=== PATIENT | female | born 1955 | race Caucasian/White ===

== ENCOUNTER 2016-11-18 12:50 | Observation (INO) | payer OTHER ==
[2016-11-18 13:33] LABS: % IMMATURE GRANULYOCYTES 0.2 % (0.0-1.1); ABSOLUTE IMMATURE GRANULOCYTES 0.03 10^3/uL (0.00-0.10); ADD DIFF? NO; ADD MORPH? NO; ADD SCAN? NO; ATYPICAL LYMPHOCYTE FLAG 0 (0-99); FRAGMENT RBC FLAG 0 (0-99); HEMATOCRIT 40.6 % (38.0-47.0); HEMOGLOBIN 13.9 g/dL (12.6-16.3); LEFT SHIFT FLG 90 (0-99); LIPEMIA HEMOLYSIS FLAG 90 (0-99); MEAN CELL HEMOGLOBIN 32.3 pg (27.9-34.1); MEAN CELL HEMOGLOBIN CONCENTR. 34.2 g/dL (32.4-36.7); MEAN CELL VOLUME 94.4 fL (81.5-99.8); MEAN PLATELET VOLUME 9.4 fL (8.7-11.7); PLATELET CLUMPS FLAG 0 (0-99); PLATELET COUNT 204 10^3/uL (150-400); RED CELL DISTRIBUTION WIDTH 12.9 % (11.5-15.2)
--- NOTE | 2016-11-18 13:39 | EDPHY ---
H & P Stated Complaint: Sent from for eval low abd pain; neg UA @ Time Seen by Provider: 11/18/16 13:15 HPI/ROS: CHIEF COMPLAINT: Abdominal pain HISTORY OF PRESENT ILLNESS: The patient presents to emergency department with complaints of abdominal pain for the past 1/2 days. She reports associated bloating. She denies associated fever, vomiting, diarrhea or dysuria. The patient has no prior history of abdominal surgery. The patient denies additional past medical history. She has no complaints of a recent upper respiratory infection. She denies associated hematuria. The patient rates her pain as a 5/10. It is localized to the lower abdomen. REVIEW OF SYSTEMS: A comprehensive 10 point review of systems is otherwise negative aside from elements mentioned in the history of present illness. Source: Patient Exam Limitations: No limitations - Personal History Current Tetanus Diphtheria and Acellular Pertussis (TDAP): Unsure - Medical/Surgical History Other PMH: healthy - Social History Smoking Status: Never smoked - Physical Exam Exam: General Appearance: Alert, no distress Eyes: Pupils equal and round no pallor or injection ENT, Mouth: Mucous membranes moist Respiratory: There are no retractions, lungs are clear to auscultation Cardiovascular: Regular rate and rhythm Gastrointestinal: Tenderness to palpation noted in the right lower quadrant with associated guarding, no generalized peritonitis present, positive McBurney , positive Rocephin, positive psoas Neurological: A&O, normal motor function, normal sensory exam, normal cranial nerves Skin: Warm and dry, no rashes Musculoskeletal: Neck is supple nontender Extremities: symmetrical, full range of motion Constitutional: Initial Vital Signs Temperature (C) 37 C 11/18/16 12:50 Heart Rate 104 H 11/18/16 12:50 Respiratory Rate 18 11/18/16 12:50 Blood Pressure 118/71 11/18/16 12:50 O2 Sat (%) 98 11/18/16 12:50 O2 Delivery Mode Room Air Allergies/Adverse Reactions: Penicillins Allergy (Mild, Verified 11/18/16 12:55) Rash Sulfa (Sulfonamide Antibiotics) Allergy (Mild, Verified 11/18/16 12:55) Rash Home Medications: Medication Instructions Recorded NK [No Known Home Meds] 11/18/16 Medical Decision Making - Diagnostics Imaging Results: Imaging Impressions Abdomen Ultrasound 11/18/16 13:40 Impression: Appendicitis. I telephoned results to Dr. Simon Hernadez at 1420 hours. ED Course/Re-evaluation: The patient presents to the ED with a 1/2 day of abdominal pain. The patient was noted to have moderate right lower quadrant tenderness on exam. She was also noted to have leukocytosis. She has no symptoms consistent with gastroenteritis. Patient was kept NPO. A stat ultrasound of her abdomen was ordered which demonstrates findings consistent with acute appendicitis. The patient had an IV established. She received a L of normal saline. She received IV pain meds and 1 g of Invanz. The patient did receive 5 mg of IV morphine for pain control and a.m. slight headache. Consultation is made with Dr. Harden, our on-call general surgeon who will admit the patient to the hospital for appendectomy. Differential Diagnosis: Differential diagnosis considered includes appendicitis, gastroenteritis, mesenteric adenitis, pyelonephritis, nephrolithiasis - Data Points Laboratory Results: Laboratory Results 11/18/16 13:25 11/18/16 13:25 11/18/16 11/18/16 13:25 13:25 WBC 12.81 10^3/uL H 10^3/uL (3.80-9.50) RBC 4.30 10^6/uL 10^6/uL (4.18-5.33) Hgb 13.9 g/dL g/dL (12.6-16.3) Hct 40.6 % % (38.0-47.0) MCV 94.4 fL fL (81.5-99.8) MCH 32.3 pg pg (27.9-34.1) MCHC 34.2 g/dL g/dL (32.4-36.7) RDW 12.9 % % (11.5-15.2) Plt Count 204 10^3/uL 10^3/uL (150-400) MPV 9.4 fL fL (8.7-11.7) Neut % (Auto) 94.0 % H % (39.3-74.2) Lymph % (Auto) 3.4 % L % (15.0-45.0) [place] % (Auto) 2.0 % L % (4.5-13.0) Eos % (Auto) 0.2 % L % (0.6-7.6) Baso % (Auto) 0.2 % L % (0.3-1.7) Nucleat RBC Rel Count 0.0 % % (0.0-0.2) Absolute Neuts (auto) 12.06 10^3/uL H 10^3/uL (1.70-6.50) Absolute Lymphs (auto) 0.43 10^3/uL L 10^3/uL (1.00-3.00) Absolute Monos (auto) 0.25 10^3/uL L 10^3/uL (0.30-0.80) Absolute Eos (auto) 0.02 10^3/uL L 10^3/uL (0.03-0.40) Absolute Basos (auto) 0.02 10^3/uL 10^3/uL (0.02-0.10) Absolute Nucleated RBC 0.00 10^3/uL 10^3/uL (0-0.01) Immature Gran % 0.2 % % (0.0-1.1) Immature Gran # 0.03 10^3/uL 10^3/uL (0.00-0.10) Sodium 139 mEq/L mEq/L (134-144) Potassium 3.8 mEq/L mEq/L (3.5-5.2) Chloride 104 mEq/L mEq/L (97-110) Carbon Dioxide 23 mEq/l mEq/l (22-31) Anion Gap 12 mEq/L mEq/L (8-16) BUN 17 mg/dL mg/dL (7-23) Creatinine 0.8 mg/dL mg/dL (0.6-1.0) Estimated GFR > 60 Glucose 89 mg/dL mg/dL (70-100) Calcium 9.5 mg/dL mg/dL (8.5-10.4) Departure - Departure Disposition: [facility] Inpatient Acute Clinical Impression: Acute appendicitis Condition: Good Referrals: ALCIDES BERNAL [Other] - As per Instructions
[2016-11-18 13:46] LABS: ANION GAP 12 mEq/L (8-16); CALCIUM 9.5 mg/dL (8.5-10.4); CARBON DIOXIDE 23 mEq/l (22-31); CHLORIDE 104 mEq/L (97-110); CREATININE 0.8 mg/dL (0.6-1.0); GLOMERULAR FILTRATION RATE > 60; GLUCOSE 89 mg/dL (70-100); POTASSIUM 3.8 mEq/L (3.5-5.2); SODIUM 139 mEq/L (134-144)
[2016-11-18] MEDS ORDERED: NS 1,000 ML IV ONE ×2 (14:22→14:29)
[2016-11-18] MEDS ORDERED: ERTAPENEM 1 GM in NS 100 ML IV ONE (14:22)
[2016-11-18] MEDS ORDERED: HYDROmorphONE/DILAUDID 1 MG/ML SYR IVP PRN ×2 (15:00→19:05)
[2016-11-18] MEDS ORDERED: ONDANSETRON 4 MG/2 ML VIAL IVP PRN (15:00)
[2016-11-18] MEDS ORDERED: LR 1,000 ML IV SCH (15:00)
[2016-11-18] MEDS ORDERED: BUPIVACAINE/EPI 0.25% 30 ML SDV ONE ×2 (15:05→17:27)
--- NOTE | 2016-11-18 15:33 | GHP ---
[f rep st] PREOP HISTORY AND PHYSICAL DATE OF ADMISSION: 11/18/2016 CHIEF COMPLAINT: Abdominal pain. HISTORY OF PRESENT ILLNESS: This is an otherwise 61-year-old female who presents to the emergency d [facility] with a day and a half of acute onset abdominal pain. The patient states that the pain beg an a day and a half ago, was initially vague lower quadrant abdominal pain which has progressed. To day she had rigors and chills and the pain had not resolved so she presented here. She denies havin g any nausea or vomiting, but has fairly significant abdominal pain. The pain she describes is lowe r abdominal without radiation, 8/10 in intensity and she describes it as sharp. PAST MEDICAL HISTORY: None. PAST SURGICAL HISTORY: She did have a laparoscopic exploration and ovarian cystectomy performed wit h her previous pregnancies. No other surgeries endorsed. SOCIAL HISTORY: Works in [employer]. Social alcohol. Denies illicit drug use. REVIEW OF SYSTEMS: A full 10-point review was performed and unless explicitly stated above, is othe rwise negative. PHYSICAL EXAMINATION: VITAL SIGNS: Temperature 38.2, blood pressure 128/73, heart rate 114 and she is 94% on room air. GENERAL: She is alert and oriented, in no acute distress. CV: She is tachyc ardic without any murmurs. LUNGS: Clear. ABDOMEN: Soft, minimally distended. Tender to palpatio n in the right lower quadrant with rebound tenderness. EXTREMITIES: Warm and well perfused. LABORATORY: Leukocytosis to 13,000 with a left shift. Ultrasound of the abdomen shows a fluid-fill ed, distensible, blind-ending loop, consistent with acute appendicitis. ASSESSMENT/PLAN: A 61-year-old female with acute appendicitis. I have discussed the risks, benefit s, and alternatives to surgery and she wishes to proceed. We will plan for IV hydration in the [facility] department, IV antibiotics and will plan for operative exploration as time permits. Thank you very much. /[id number]/MODL
[2016-11-18] MEDS ORDERED: PROPOFOL 200 MG/20 ML VIAL ONE (17:51)
[2016-11-18] MEDS ORDERED: fentaNYL 100 MCG/2 ML INJ ONE (17:51)
[2016-11-18] MEDS ORDERED: LIDOCAINE 2% 5 ML SDV ONE (17:55)
[2016-11-18] MEDS ORDERED: ROCURONIUM 50 MG/5 ML VIAL ONE (17:55)
[2016-11-18] MEDS ORDERED: SUCCINYLCHOLINE CHLORIDE*ANESTHESIA ONLY*200 MG/10 ML SYR IVP ONE (17:55)
[2016-11-18] MEDS ORDERED: ONDANSETRON 4 MG/2 ML VIAL ONE (17:55)
[2016-11-18] MEDS ORDERED: DEXAMETHASONE 4 MG/ML VIAL ONE (17:55)
[2016-11-18] MEDS ORDERED: MIDAZOLAM 2 MG/2 ML VIAL ONE (18:04)
[2016-11-18] MEDS ORDERED: SUGAMMADEX SODIUM 200 MG/2 ML VIAL IVP ONE (18:50)
[2016-11-18] MEDS ORDERED: HYDROCODONE/APAP 5/325 TAB PO PRN (19:05)
--- NOTE | 2016-11-18 19:05 | POSTOPPROG ---
Post Op Note Date of Operation: 11/18/16 Surgeon: Adalberto Harden Anesthesiologist: Griffin Anesthesia: GET(General Endotracheal) Pre-op Diagnosis: appendicitis Post-op Diagnosis: perforated appendicitis Procedure: lap appy Findings: perforation at tip, purulence in abdomen Inf/Abcess present in the surg proc area at time of surgery?: Yes Depth: Organ Space EBL: Minimal Total fluids administered: 1500cc irrigation Specimen(s): appendix
--- NOTE | 2016-11-18 19:29 | GOP ---
[f rep st] OPERATIVE REPORT DATE OF OPERATION: 11/18/2016 SURGEON: Adalberto Harden MD IT SYSTEMS ANALYST: None. ANESTHESIA: General endotracheal per Dr. Moya PREOPERATIVE DIAGNOSIS: Appendicitis. POSTOPERATIVE DIAGNOSIS: Perforated appendicitis. PROCEDURE PERFORMED: Laparoscopic appendectomy with washout. FINDINGS: Appendix appeared perforated near the tip. There was purulent material in the pelvic cul-de-sac and right lower quadrant. SPECIMENS: Appendix. ESTIMATED BLOOD LOSS: 5 cc. DESCRIPTION OF PROCEDURE: The patient was greeted in the preoperative suite. Once again, risks, benefits, and alternatives were discussed. She was then brought back to the operative suite, placed on the OR table in a supine position. After all anesthesia machines, including SCDs were on and functioning , [employer] time-out was performed. General endotracheal anesthesia was then induced without incident. Antibiotics were given on-call to the operating room. Her abdomen was then widely prepped and draped in typical sterile fashion. I entered the abdomen using the Veress needle in the left upper quadrant and achieved pneumoperitoneum to 15 mmHg CO2, which was well tolerated by the patient. I then entered the abdomen via her previous midline infraumbilical scar with a 12 mm Visiport technique. Once successfully in the abdomen, I then placed 2 other 5 mm trocars, 1 in the suprapubic, 1 in the left lower quadrant, both under direct visualization. I then traced the taeniae inferiorly and identified the appendix. Adjacent to it was purulent material and it appeared that there was an acute perforation at the tip of the appendix. Using a [place] dissector, I dissected out the base of the appendix and using a single fire of the Endo-ANGIE blue load stapler, amputated the appendix from the cecal base. In the same fashion I amputated the mesoappendix with a white load. There was a residual bleeder which I dealt with hemoclips at the site. I then turned my attention toward washout. There was purulent material in the right upper quadrant, right lower quadrant and pelvis. Using 1500 cc sterile saline, I irrigated all and removed all purulent material from the abdomen. I then inspected my staple lines which appeared to be intact and hemostatic. I then infiltrated local anesthetic into all the port sites and removed them under direct visualization. I then desufflated my pneumoperitoneum. I closed my midline incision with an interrupted [id number] 0 Vicryl stitch, noting excellent fascial reapproximation. The skin was then closed with Monocryl over which Dermabond was placed. The patient was then extubated in the operative suite and taken to the PACU in satisfactory condition. DRAINS: None. COUNTS: All counts were reported as correct x2. /[id number]/MODL MTDD
[2016-11-18] MEDS: D5W 1/2 NS W/ 20 KCl/L 1,000 ML IV SCH (20:58)
[2016-11-18] MEDS: DOCUSATE SODIUM 100 MG CAP PO PRN (21:39)
[2016-11-19] MEDS: D5W 1/2 NS W/ 20 KCl/L 1,000 ML IV SCH (04:02)
[2016-11-19 04:13] LABS: COLOR YELLOW; LEUKOCYTE ESTERASE,URINE NEGATIVE (NEGATIVE); NITRITE,URINE NEGATIVE (NEGATIVE)
[2016-11-19] MEDS ORDERED: MAGNESIUM HYDROXIDE 30 ML UDCUP PO PRN (07:53)
[2016-11-19] MEDS ORDERED: BISACODYL 10 MG SUPP PR PRN (07:53)
[2016-11-19] MEDS ORDERED: LACTULOSE 20 GM/30 ML UDCUP PO PRN (07:53)
[2016-11-19] MEDS ORDERED: POLYETHYLENE GLYCOL 3350 17 GM PKT PO PRN (07:53)
[2016-11-19 08:12] VITALS: RESP 17
[2016-11-19] MEDS: DOCUSATE SODIUM 100 MG CAP PO PRN (08:19)
[2016-11-19] MEDS ORDERED: ERTAPENEM 1 GM in NS 100 ML IV SCH (09:00)
--- NOTE | 2016-11-19 09:32 | SOAPPROG ---
SOAP Progress Note Assessment/Plan: Assessment/Plan: - 61yo F POD#1 s/p lap appy for perforated appendicitis - Pain controlled, transition to oral narcotics - Abdomen minimally distended, incisions c/d/i, has some decent bowel sounds. Tolerating clears, will advance to reg diet. - Aggressive bowel regimen as has Hx of constipation - If looks good later this afternoon will plan for d/c. addl dose of IV abx this AM, transition to PO with dc. 11/19/16 09:30 Subjective: Doing great, pain controlled. Tolerating clears Objective: Vital Signs Temp Pulse Resp BP Pulse Ox 36.6 C 67 17 93/67 L 98 11/19/16 08:00 11/19/16 08:00 11/19/16 08:00 11/19/16 08:00 11/19/16 08:00 11/18/16 11/19/16 11/20/16 05:59 05:59 05:59 Intake Total 5319 Output Total 905 Balance 4414 ICD10 Worksheet Patient Problems: Problems Problem Status Onset Acute appendicitis Acute Perforated appendicitis Acute - ICD10 Problem Qualifiers (1) Perforated appendicitis
[2016-11-19 12:42] VITALS: BP 107/64; PULSE 75; TEMP 97.9; O2SAT 97
== END 2016-11-19 13:08 | disposition home or self-care (01) ==
LOC: F1N 20:14
PROVIDERS: ADMIT Surgery; ATTEND Surgery
PROC: 0DTJ4ZZ Resection of Appendix, Percutaneous Endoscopic Approach (ICD-10-PCS; principal; 2016-11-18 14:30)
DX: K35.2 Acute appendicitis with generalized peritonitis (principal)
CPT/HCPCS: 44970; 76705; G0378; 96365; J0330; J1100; J1170; J1335; J2250; J2405; J2704; J3010